=== PATIENT | female | born 1995 | race African-American/Black ===

== ENCOUNTER 2016-10-14 06:12 | Emergency (ER) | payer MEDICAID ==
[~2016-10-14] VITALS: Ht 154.9 cm; Wt 52.9 kg
[2016-10-14] MEDS ORDERED: MORPHINE SULFATE 4 MG/ML, 1ML IVPush PRN (08:00)
[2016-10-14] MEDS ORDERED: ONDANSETRON 2MG/ML, 2ML IVPush ONE (08:00)
[2016-10-14] MEDS ORDERED: FAMOTIDINE 20 MG/2 ML IVP ONE (08:00)
[2016-10-14] MEDS ORDERED: SODIUM CHLORIDE 0.9% 1,000ML IVBOLUS ONE (08:00)
[2016-10-14] MEDS ORDERED: ONDANSETRON 2MG/ML, 2ML ONE ×2 (08:05→11:06)
[2016-10-14] MEDS ORDERED: MORPHINE SULFATE 4 MG/ML, 1ML ONE (08:05)
[2016-10-14] MEDS ORDERED: FAMOTIDINE 20 MG/2 ML ONE (08:06)
[2016-10-14 08:38] LABS: BLOOD UREA NITROGEN 3 mg/dL (7-18)
[2016-10-14 08:56] LABS: ASPARTATE AMINO TRANSFERASE 14 U/L (15-37)
[2016-10-14] MEDS ORDERED: ACETAMINOPHEN 325 MG TABLET ONE (11:06)
[2016-10-14 11:20] VITALS: BP 123/77
== END 2016-10-14 11:22 | disposition home or self-care (01) ==
LOC: ED 08:08
DX: Z32.01 Encounter for pregnancy test, result positive (principal)
CPT/HCPCS: 36415; 76801; 80053; 81001; 84702; 85025; 86901; 87086; 96361; 96374; 96375; 99285; J2405; J7030; S0028